=== PATIENT | female | born 1965 | race American Indian/Alaskan Native ===

== ENCOUNTER 2018-08-04 17:54 | Emergency (ER) | payer MEDICAID ==
--- NOTE | 2018-08-04 18:17 | EDM.PDOC ---
ED HPI GENERAL MEDICAL PROBLEM - General Chief Complaint: Upper Extremity Injury/Pain Stated Complaint: FALL WITH INJURY TO L ARM Time Seen by Provider: 08/04/18 18:00 Source of Information: Reports: Patient History Limitations: Reports: No Limitations - History of Present Illness INITIAL COMMENTS - FREE TEXT/NARRATIVE: Patient comes into the emergency department with complaint of left shoulder pain. Patient states that she recently fractured her shoulder approximately 6 weeks ago. Today she was ambulating in her house and tripped over a cord falling on her left shoulder. She denies hitting her head or any other injuries other than the shoulder. She noted severe pain in the left shoulder at the time of the fall. She is unable to move it due to the discomfort. She denies any numbness and tingling in the fingers and has complete range of motion of the elbow and fingers. She denies hearing any cracking or popping sensation when injury occurred. She is resting her arm the pain is less however she moves it is more severe. Patient denies any other concerns or complaints today Onset: Sudden Location: Reports: Upper Extremity, Left Quality: Reports: Sharp, Throbbing Severity: Moderate Improves with: Reports: Immobilization Worsens with: Reports: Movement Context: Reports: Activity Associated Symptoms: Reports: No Other Symptoms - Related Data Allergies Allergy/AdvReac Type Severity Reaction Status Date / Time No Known Allergies Allergy Verified 08/04/18 18:17 Home Meds: Home Meds . [Unable to Verify Home Med List] 08/04/18 [History] Review of Systems - Review of Systems Review Of Systems: ROS reveals no pertinent complaints other than HPI. Constitutional: Reports: No Symptoms Eyes: Reports: No Symptoms Ears: Reports: No Symptoms Nose: Reports: No Symptoms Mouth/Throat: Reports: No Symptoms Respiratory: Reports: No Symptoms Cardiovascular: Reports: No Symptoms GI/Abdominal: Reports: No Symptoms Genitourinary: Reports: No Symptoms Musculoskeletal: Reports: No Symptoms Skin: Reports: No Symptoms Neurological: Reports: No Symptoms Psychiatric: Reports: No Symptoms ED EXAM, GENERAL - Physical Exam Exam: See Below Exam Limited By: No Limitations General Appearance: Alert, WD/WN, No Apparent Distress Neck: Normal Inspection, Supple, Non-Tender, Full Range of Motion Respiratory/Chest: No Respiratory Distress, No Accessory Muscle Use Cardiovascular: Normal Peripheral Pulses, Regular Rate, Rhythm Back Exam: Normal Inspection, Full Range of Motion Extremities: Arm Pain (left shoulder pain- decrease ROM due to pain. Pain with flexion, extension, and rotation) Neurological: Alert, Oriented Psychiatric: Normal Affect, Normal Mood Skin Exam: Warm, Dry, Intact, Normal Color, No Rash Course - Orders/Labs/Meds Orders: Active Orders 24 hr Category Date Time Status Shoulder Comp Lt [CR] Stat Exams 08/04/18 18:10 Ordered Departure - Departure Time of Disposition: 19:00 Disposition: Home, Self-Care 01 Condition: Good Clinical Impression: Shoulder pain Qualifiers: Chronicity: acute Laterality: left Qualified Code(s): M25.512 - Pain in left shoulder - Discharge Information *PRESCRIPTION DRUG MONITORING PROGRAM REVIEWED*: Yes *COPY OF PRESCRIPTION DRUG MONITORING REPORT IN PATIENT ROBERT: Yes Instructions: Shoulder Pain, [id number] Referrals: Gabriel Moraes MD [Primary Care Provider] - Forms: ED Department Discharge Additional Instructions: 1. rest 2. can use your brace that was supplied from her injury 3. Can take ibuprofen and Tylenol as needed for pain or discomfort 4. Ice the shoulder for 20 mins 3-4 times a day if experiencing pain 5. Follow up with PCP if not better in 2 weeks 6. Xray today revealed healing proximal humerus fracture 7. Call with any questions or concerns - Problem List Review Problem List Initiated/Reviewed/Updated: Yes - My Orders Last 24 Hours: My Active Orders 08/04/18 18:10 Shoulder Comp Lt [CR] Stat - Assessment/Plan Last 24 Hours: My Active Orders 08/04/18 18:10 Shoulder Comp Lt [CR] Stat Assessment:: 1. Left shoulder pain Plan: 1. Xray completed in ER. Results reviewed with the patient- Healing proximal humerus fracture 2. [place]PDMP reviewed. 06/25 oxycodone HCL 10mg 20 tabs, 06/30 Oxycodone- acetaminophen 5/325mg 30 tabs given. 3. [employer] contacted regarding patient recent images from 06/25 radiologist read stated comminuted left humeral head and neck non displaced. 4. Patient is advised that she was given 50 tabs of oxycodone a little over a month ago. It is advisable she can use ibuprofen and Tylenol as needed for the discomfort 5. Pt also have a sling from her injury. Did advise she can use that if need be for comfort. 6. Follow up instructions provided 7. All questions and concerns addressed prior to discharge.
--- NOTE | 2018-08-04 18:51 | CR ---
[id number] RAD/RAD Shoulder Left 2V Min EXAM: LEFT SHOULDER 2 VIEWS INDICATION: Fall with fracture approximately 6 weeks ago. COMPARISON: None. DISCUSSION: There is a subacute appearing healing mildly displaced fracture of the proximal humerus with fracture lines across the surgical neck and greater tuberosity. No dislocation. Mild to moderate acromioclavicular osteoarthritis. Remodeling of the undersurface of the acromion that may relate to a chronic underlying rotator cuff tear. IMPRESSION: 1. Healing proximal humerus fracture. Sunil King MD 08/04/18 [id number] Thank you for allowing us to participate in the care of your patient.
== END 2018-08-04 19:09 | disposition home or self-care (01) ==
LOC: VM.ED 17:54
DX: M25.512 Pain in left shoulder (principal); W01.0XXA Fall on same level from slipping, tripping and stumbling without subsequent striking against object, initial encounter; Y92.099 Unspecified place in other non-institutional residence as the place of occurrence of the external cause
CPT/HCPCS: 73030-LT; 99283-25